=== PATIENT | male | born 1950 | race Caucasian/White ===

== ENCOUNTER → 2020-02-01 | Outpatient (CLI) | payer MEDICARE ==
--- NOTE | 2020-02-04 12:59 | REP ---
LIVER ULTRASOUND CLINICAL: History of hepatitis C. TECHNIQUE: Real-time roberts scale and color evaluation using curved array transducer. FINDINGS: The liver is normal in contour, size, and echogenicity without focal hepatic lesions identified. The pancreas is incompletely evaluated, but visualized portions appear normal. The gallbladder is relatively normal and without gallstones, wall thickening, or pericholecystic fluid. The right kidney is normal in reniform shape without hydronephrosis and measures 10.6 x 5.3 x 3.5 cm with three small benign appearing cysts measuring 10-12 mm. No ascites in the visualized right upper quadrant. IMPRESSION: * Normal liver. * Three small renal cysts measuring up to 12 mm. MTDD
== END ==
LOC: M RAD 12:50
PROVIDERS: ATTEND Family Medicine
DX: N28.1 Cyst of kidney, acquired (principal); Z86.19 Personal history of other infectious and parasitic diseases

== ENCOUNTER → 2021-09-05 | Outpatient (CLI) | payer MEDICARE | LOC: M RAD 10:53 | PROVIDERS: ATTEND Family Medicine | DX: R91.8 Other nonspecific abnormal finding of lung field (principal); Z12.2 Encounter for screening for malignant neoplasm of respiratory organs ==

== ENCOUNTER → 2021-11-27 | Outpatient (REF) | payer MEDICARE | LOC: M SFHCDERM 14:18 | PROVIDERS: ATTEND Nurse Practitioner Family | DX: D04.5 Carcinoma in situ of skin of trunk (principal) ==

== ENCOUNTER → 2023-03-21 | Outpatient (REF) | payer MEDICARE, MEDICAID | LOC: M SFHCDERM 17:20 | PROVIDERS: ATTEND Nurse Practitioner Family | DX: B07.9 Viral wart, unspecified (principal) ==

== ENCOUNTER → 2023-10-09 | Outpatient (REF) | payer MEDICARE, MEDICAID ==
[2023-10-09 18:29] LABS: HEMATOCRIT 36.8 % (42.0-52.0); HEMOGLOBIN 12.1 g/dl (13.5-17.5); MEAN CORPUSCULAR HEMOGLOBIN 31.1 pg (27.0-33.0); MEAN CORPUSCULAR HGB CONC 32.9 g/dl (32.0-36.5); MEAN CORPUSCULAR VOLUME 94.6 fl (80.0-96.0); PLATELET COUNT, AUTOMATED 211 10^3/uL (150-450); RED BLOOD COUNT 3.89 10^6/uL (4.30-6.10); WHITE BLOOD COUNT 6.1 10^3/uL (4.0-10.0)
[2023-10-09 18:53] LABS: BASOPHILS 2 % (0-1); EOSINOPHILS 4 % (0-3); LYMPHOCYTES 32 % (16-44); MONOCYTES 7 % (0-5); NEUTROPHILS 55 % (28-66); PLATELET ESTIMATE NORMAL (NORMAL)
[2023-10-09 19:04] LABS: ALBUMIN 3.7 G/DL (3.2-5.2); ALKALINE PHOSPHATASE 76 U/L (46-116); ALT/SGPT 19 U/L (7.0-40); AST/SGOT 16 U/L (<34); BILIRUBIN,TOTAL 0.3 MG/DL (0.3-1.2); BLOOD UREA NITROGEN 20 MG/DL (9-23); CALCIUM LEVEL 9.5 MG/DL (8.3-10.6); CARBON DIOXIDE LEVEL 31 MMOL/L (20-31); CHLORIDE LEVEL 105 MMOL/L (98-107); CHOLESTEROL LEVEL 130 MG/DL (<200); CREATININE FOR GFR 1.22 MG/DL (0.70-1.30); GLOMERULAR FILTRATION RATE > 60.0 (>42); GLUCOSE, FASTING 86 MG/DL (74-106); LDL CHOLESTEROL 58.4 MG/DL (<100); POTASSIUM SERUM 4.9 MMOL/L (3.5-5.1); SODIUM LEVEL 138 MMOL/L (136-145); TRIGLYCERIDES LEVEL 108 MG/DL (<150)
== END ==
LOC: M SFHCLERA 15:07
PROVIDERS: ATTEND Family Medicine
DX: S40.862A Insect bite (nonvenomous) of left upper arm, initial encounter (principal); E78.5 Hyperlipidemia, unspecified; I10 Essential (primary) hypertension; W57.XXXA Bitten or stung by nonvenomous insect and other nonvenomous arthropods, initial encounter; Y93.9 Activity, unspecified; Y92.9 Unspecified place or not applicable; Y99.9 Unspecified external cause status